=== PATIENT | female | born 1945 | race Caucasian/White ===

== ENCOUNTER 2017-02-09 13:25 | Day surgery (SDC) | payer MEDICARE, BC ==
[~2017-02-09] VITALS: Ht 165.1 cm; Wt 65.5 kg
[~2017-02-09 13:25] MED LIST: ASPI81TA11 PO; BIOT10TA PO; BUTA1CAP PO; CALC1TAB34 PO; CELE200C PO; CHLO25TA2 PO; DEXI60CA2 PO; DEXT1TAB18 PO; ESTR0.752 PO; FOLI1TAB6 PO; IMUR50TA PO; LEVO.05 PO; LEVO1TAB50 PO; LIPI10TA PO; MOME17I EACH NARE; MONT10TA2 PO; MULTTAB67 PO; NIFE30TA61 PO; PLAQ200T PO; RAMI5CAP PO; RIZA10TA2 PO; VALT1TAB PO; VENTAER INH; VITA2000 PO
[2017-02-09] MEDS ORDERED: IOHEXOL 350 MG/ML 50 ML BTL (for Cath Lab) OTHER ONE (13:26)
[2017-02-09] MEDS ORDERED: IOHEXOL 350 MG/ML 100 ML BTL (for Cath Lab) OTHER ONE (13:26)
[2017-02-09 14:25] LABS: AUTOMATED NEUTROPHIL # 3.9 TH/MM3 (1.8-7.7); BASOPHIL % 0.8 % (0.0-2.0); EOSINOPHIL % 0.8 % (0.0-4.0); HEMATOCRIT 43.5 % (35.0-46.0); HEMO FLAGS DIFF FINAL; LYMPH % 25.2 % (9.0-44.0); LYMPHOCYTE # 1.5 TH/MM3 (1.0-4.8); MEAN CELL VOLUME 92.5 FL (80.0-100.0); MEAN CORPUSCULAR HEMOGLOBIN 32.2 PG (27.0-34.0); MEAN CORPUSCULAR HGB CONC 34.8 % (32.0-36.0); MONO % 7.7 % (0.0-8.0); NEUT % 65.5 % (16.0-70.0); PLATELET COUNT 240 TH/MM3 (150-450)
[2017-02-09 14:30] LABS: APTT (PATIENT) 26.2 SEC (24.3-30.1)
[2017-02-09] MEDS ORDERED: ASPIRIN 81 MG CHEW TAB PO SCH (14:30)
[2017-02-09 14:35] LABS: POTASSIUM 3.9 MEQ/L (3.5-5.1)
[2017-02-09 14:45] VITALS: BP 140/75; PULSE 81; RESP 16; TEMP 97.9; O2SAT 97
[2017-02-09] MEDS ORDERED: BACL10TA PO (14:45)
[2017-02-09] MEDS ORDERED: CARA1SUS3 PO (14:45)
[2017-02-09] MEDS ORDERED: SODIUM CHLORID 0.9% 500 ML INJ 500 ML ONE (15:27)
[2017-02-09] MEDS ORDERED: HEPARIN-NS/PF INJ 1,000 ML ONE (15:27)
[2017-02-09] MEDS ORDERED: MIDAZOLAM HCL 2 MG/2 ML VIAL ONE (15:39)
[2017-02-09] MEDS ORDERED: HEPARIN SODIUM - IV 10,000 UNITS/10 ML VIAL ONE (16:29)
[2017-02-09] MEDS ORDERED: ADENOSINE STRESS TEST INJ 90 MG/30 ML VIAL ONE (16:31)
[2017-02-09] MEDS ORDERED: ASPIRIN 81 MG CHEW TAB ONE (17:06)
[2017-02-09] MEDS ORDERED: CLOPIDOGREL 300 MG TAB ONE (17:06)
[2017-02-09] MEDS ORDERED: TIROFIBAN INFUSION INJ 250 ML IV ONE (17:16)
[2017-02-09] MEDS ORDERED: TIROFIBAN INFUSION INJ 250 ML IV SCH (17:27)
[2017-02-09] MEDS ORDERED: BACITRACIN OINT 0.9 GM PKT TOP ONE (17:30)
[2017-02-09] MEDS ORDERED: CLOPIDOGREL 300 MG TAB PO ONE (17:30)
[2017-02-09] MEDS ORDERED: MISC INFORMATION XX ONE (17:30)
[2017-02-09] MEDS ORDERED: SODIUM CHLORIDE 0.9% FLUSH 10 ML FLUSH PRN (17:30)
--- NOTE | 2017-02-09 17:40 | CATHPROC ---
IPWireless HIS Report Study Information Study Number Admission Scheduled Start Study Start [id number] Feb 09 2017 1:25PM 02/09/2017 Feb 09 2017 3:06PM [place] [facility] Cardiac Catheterization Admit Source Facility Department Other [facility] - City Surveyor Physician and Clinical Staff Initial Cain Kaye Deputy Sheriff Chief Brandy Meyer,RN Recorder Mary Arango,BUCKLE SORTER TECH2 Scrub Brandy Vigil,RT(R) Procedures Performed Procedure Location (Site) Vessel Name Coronary Angiograms LCA Left Coronary Coronary Angiograms RCA Right Coronary PTCA CIRC Dist CIRC Wire insertion Fem Art (right) Femoral Art Equipment Time Dining Room Attendant Description Size Mfg Part Number Used/Scraped [id number] 17:00 [employer]LL [employer] WIRE, ASAIndiegogo PROWATER 180CM 180CM Used *[id number] CATHETER, FR5 SWAN ADDISON 15:08 KeepFu FISHER FR 5 [id number] *[id number] Used MONITOR TRANSDUCER, TRUWAVE [id number] 15:08 WILDE FISHER * Used W/STOCKCOCK *[id number] 17:01 ServiceMesh WIRE, CHOICE PT 182CM 182CM Used *[id number] 538-420 *[id number] 538-421 *[id number] *[id number] *[id number] 15:08 [employer] INDUSTRIES PACK, CCL CUSTOM * Used *[id number] 15:08 [employer]Hub PACER PEN, SKIN DUAL W/ RULER * Used *[id number] 17:07 MEDTRONIC BALLOON, 2.0 X 12MM EUPHORA 12MM Used *[id number] 17:08 [employer]ocus[employer] MEDICAL 30 SKY INDEFLATOR Used *[id number] 15:08 [employer] MEDICAL SHEATH, FR5.5 PRELUDE 11CM FR 5.5 Used [id number] 16:31 [employer] MEDICAL SHEATH, FR6.5 PRELUDE 11CM FR 6.5 038ACT Used *[id number] 15:08 [employer] MEDICAL WIRE, 3MMJ .035 180CM 180CM Used *[id number] 15:08 NAMIC MANIFOLD, 4 PORT * Used *[id number] 15:08 NYCOMED OMNIPAQUE, 350 MG, 150ML 150ML [id number] Used [id number] 15:08 PERRIN MEDICAL BLANKET,WARM AIR CCL * Used *[id number] 15:08 TERUMO MEDICAL SHEATH, FR4 TERUMO (10CM) FR 4 Used *[id number] 16:33 [place]OL[place]O PRIME WIRE, VERRATA 185CM 185CM [id number] *[id number] Used Equipment Model, Serial, Lot Number and Expiration Data Description Model Number Serial Number Lot Number Expiration Date PRIME WIRE, VERRATA 185CM [id number] 12-14-2019 WIRE, CHOICE PT 182CM [id number] 11-26-2018 History: Current Medications Medication Dosage/Unit Route Frequency Last Date/Time Taken ASA Celebrex Synthroid LIPITOR History: Allergies Allergy Reaction Demerol Nausea/Vomiting Quinolones TENDON RUPTURE Tetracycline Rash Bactrim Rash CIALIS MIOCARDIAL INFARCTION doxycycline Rash sulfamethoxazole Rash trimethoprim Rash ciprofloxacin TENDON RUPTURE meperidine Nausea/Vomiting minocycline Rash tigecycline Rash Tetracyclines History: Risk Factors Family History of Hypertension Dyslipidemia Previous PR Previous Heart Failure Premature CAD Yes Yes Yes Yes No Prior Valve Prior PCI Prior CABG Surgery No No No Cerebrovascular Peripheral Artery On Dialysis Diabetes Disease Disease No No No No History: Symptoms/Diagnosis Selection Items Angina-unstable SOB History: Stress Tests Stress or Imaging Studies Performed Yes Standard Exercise Stress Test No Stress Echo No Stress Test SPECT Stress Test SPECT Result Stress Test SPECT Ischemia Risk/Extent Yes Positive Intermediate Stress Test CMR No Cardiac CTA Coronary Calcium Score No No History: Other Current Smoker No Labs Hgb (g/dl) Hct (%) RBC (MIL/MM3) WBC (l/cumm) Platelets (thousands) 11.60-17.00 35.00-51.00 4.00-5.90 4.00-11.00 150.00-450.00 15.1 43.5 4.7 6 240 Glucose (mg/dl) BUN (mg/dl) Creatinine (mg/dl) BUN:Creatinine (1:x) 74.00-106.00 7.00-18.00 0.50-1.30 10.00-20.00 83 25 1.1 22.7 Na (meq/l) K (meq/l) CO2 (mmol/L) Ca (mg/dl) 136.00-145.00 3.50-5.10 21.00-32.00 8.50-10.10 139 3.9 29 9.9 PT (sec) PTT (sec) INR (PTT:PT) 9.80-11.60 24.30-30.10 0.90-1.10 11 26.2 1 CPK-MB (ng/ML) 0.50-3.60 Not Drawn Medication Medication Total Dose (Bolus/Oral) Medication Total Dosage/Unit 1% XYLOCAINE 20 mL AGGRASTAT BOLUS 34.6 mL ASPIRIN 162 mg HEPARIN 4800 units PLAVIX 600 mg Medications (Bolus/Oral) Medication Time Given Dosage/Unit Administered By Reason 1% XYLOCAINE 02/09/2017 4:09:47 PM 20 mL Cain Obrien 20 mL 1% XYLOCAINE given in lab by Cain Obrien in Right Groin via Subcutaneous. Ordered by Cain Avendano. HEPARIN 02/09/2017 4:31:01 PM 4800 units Brandy Meyer 4800 units HEPARIN given in lab by Brandy Meyer RN in Left Antecubital via Peripheral IV. Ordered by Cain Obrien. PLAVIX 02/09/2017 5:16:49 PM 600 mg Brandy Meyer 600 mg PLAVIX given in lab by Brandy Meyer RN via Oral. Ordered by Cain Obrien. ASPIRIN 02/09/2017 5:17:26 PM 162 mg Brandy Meyer 162 mg ASPIRIN given in lab by Brandy Meyer RN via Subcutaneous. Ordered by Cain Obrien. AGGRASTAT BOLUS 02/09/2017 5:23:29 PM 34.6 mL Brandy Meyer 34.6 mL AGGRASTAT BOLUS given in lab by Brandy Meyer RN in Left Antecubital via Peripheral IV. Ord ered by Cain Obrien. Medication (Drip) Medication Time Given Dosage/Unit Concentration/Unit Diluent (ml) Solution ADENOSINE DRIP 02/09/2017 4:50:35 PM 146.843 mcg/kg/min 90 mg 90 NaCl .9 146.843 mcg/kg/min ADENOSINE DRIP given in lab by Brandy Meyer RN in Left Antecubital via Peripher al IV. Pump/Drip Flow = 600 ml/hr using NaCl .9 with a concentration of 90 mg in 90 ml. Ordered by Cain Obrien. ADENOSINE DRIP 02/09/2017 4:53:58 PM 146.843 mcg/kg/min 90 mg 90 NaCl .9 146.843 mcg/kg/min ADENOSINE DRIP discontinued in lab by Brandy Meyer RN in Left Antecubital via P eripheral IV. Pump/Drip Flow = 600 ml/hr using NaCl .9 with a concentration of 90 mg in 90 ml. Ordered by Cain Obrien. Reason: As per frandy elise verbal order. Discontinued at 02/09/2017 16:53. AGGRASTAT DRIP 02/09/2017 5:26:58 PM 0.076 mcg/kg/min 12.5 mg 250 NaCl .9 0.076 mcg/kg/min AGGRASTAT DRIP given in lab by Brandy Meyer RN in Left Antecubital via Peripheral IV. Pump/Drip Flow = 6.2 ml/hr using NaCl .9 with a concentration of 12.5 mg in 250 ml. Ordered by Cain Obrien. IV Solutions 02/09/2017 3:21:19 PM 0 mL (IV) 500 NaCl .9 Patient arrived on IV Solutions in Left Antecubital via Peripheral IV. Pump/Drip Flow = 20 ml/hr usin g NaCl .9. Initial Case Assessment Cardiovascular HR Rhythm NIBP Chest Pain 77 SR 126/57 0 Circulatory - Right Pulses Dorsalis Pedis Femoral 2 2 Scale (0,1,2,3,4,d) Circulatory - Left Pulses Dorsalis Pedis Femoral 1 2 Scale (0,1,2,3,4,d) Neurological State Oriented to time-place- Alert Moves all extremities person Respiration - General Respiration Rate SpO2 (%) (B/min) 13 99 Chronological Log Time Study Chronological Log 15:19:10 Patient arrived via Bed. 15:19:17 Patient Name, D.O.B, / Armband Verified By R.N. 15:20:24 Consent signed by the physician and the patient and verified by the City Surveyor staff. 15:20:25 Pre-op and post- op instructions given; patient acknowledges understanding of instructions. 15:20:26 Verbal Stimulation=2 Physical Stimulation=2 Airway=2 Respiration=2 TOTAL=8. (0=absent, 1=li mited, 2=present) 15:20:27 Presedation assessment performed by City Surveyor RN. 15:20:30 Patient has been NPO for More than 6Hrs. 15:20:32 Skin Breakdown-NONE 15:21:12 A # 20 IV was noted in the Antecubital (left). Grade = 0 15:21:19 Patient arrived on IV Solutions in Left Antecubital via Peripheral IV. Pump/Drip Flow = 20 ml/hr using NaCl .9. 15:21:20 History and physical on the chart or being dictated. Vitals capture started with the following parameters, Patient=Adult, Interval=5 min, Initial Pr vigdnz=939 mmHg, 15:23:14 Deflation Rate=5 mmHg, Cuff placed on Left Ankle 15:24:32 HR=77 bpm, WMPY=362/57 mmhg, SpO2=96.0 %, Resp=11 B/min, Pain=0, Antolin=10, Leal=2 15:25:56 Reference ECG taken Assessment: Initial Case, HR=77 BPM, Rhythm=SR, GXTU=167/57 mmhg, Chest Pain=0 Right Pulses: Jaun Ped=2, Femoral=2 15:28:43 Left Pulses: Juan Ped=1, Femoral=2 Neurological: State=Alert, Ox3, PERALES Respiration: Resp=13 B/min, SpO2=99 % 15:28:50 HR=76 bpm, SFMW=907/56 mmhg, SpO2=98.0 %, Resp=9 B/min 15:33:47 HR=76 bpm, EGCZ=113/64 mmhg, SpO2=96.0 %, Resp=12 B/min 15:38:50 HR=84 bpm, XMAZ=344/66 mmhg, SpO2=97.0 %, Resp=11 B/min, Antolin=10 15:40:44 Bilateral groins prepped with 2% chlorhexidine, and with a 3 min. waiting time. 15:43:31 History and physical on the chart or being dictated. 15:43:37 Pressure channel 1 zeroed. 15:43:53 HR=78 bpm, FIRU=480/54 mmhg, SpO2=96.0 %, Resp=11 B/min, Pain=0, Antolin=10, Leal=2 15:44:23 MD paged 15:48:50 HR=79 bpm, NOIR=515/58 mmhg, SpO2=99.0 %, Resp=8 B/min 15:53:51 HR=83 bpm, YHOZ=707/63 mmhg, SpO2=99.0 %, Resp=14 B/min 15:58:53 HR=80 bpm, HFSL=704/57 mmhg, SpO2=97 %, Resp=12 B/min 16:03:24 MD arrived. 16:03:52 HR=82 bpm, ABNM=276/58 mmhg, SpO2=96.0 %, Resp=16 B/min Time Out. Correct patient, correct procedure,correct physician, power injector not used, with s urgical team present. 16:08:44 Time Out Concurred by MD and individual staff in procedure 16:08:55 HR=87 bpm, UCHF=293/66 mmhg, SpO2=97.0 %, Resp=10 B/min 16:09:46 Case Start 20 mL 1% XYLOCAINE given in lab by Cain Obrien in Right Groin via Subcutaneous. Ordered by Micah, 16:09:47 Cain. 16:12:27 Access site was Right Femoral Artery. 16:12:43 A SHEATH, FR4 TERUMO (10CM) FR 4 was advanced into the Fem Art (right) using the Percutaneo us technique. 16:13:09 Saturation: Site=Ao (Aorta) , O2=97.8 %, Hgb=15.1 gm/dl, Condition=Condition 1. Used in joana culation. 16:13:56 HR=83 bpm, AXQW=359/60 mmhg, SpO2=95.0 %, Resp=12 B/min 16:14:22 Access site was Right Femoral Vein. 16:14:32 A SHEATH, FR5.5 PRELUDE 11CM FR 5.5 was advanced into the Fem Vein (right) using the Percut aneous technique. 16:15:09 A CATHETER, FR5 SWAN ADDISON MONITOR FR 5 was inserted via Fem Vein (right) Recorded Pressure: PCW, HR=94, Condition=Condition 1 16:17:19 (Pulmonary Capillary Wedge) PCW 8 Recorded Pressure: MPA, HR=88, Condition=Condition 1 16:17:43 (Main Pulmonary Artery) MPA 16:18:11 Saturation: Site=PA (Pulmonary Artery) , O2=85.4 %, Hgb=15.1 gm/dl, Condition=Condition 1. Used in calculation. Recorded Pressure: RV, HR=88, Condition=Condition 1 16:18:53 (Right Ventricle) RV 36/4/10 16:18:55 HR=87 bpm, UBMK=892/64 mmhg, SpO2=96.0 %, Resp=15 B/min Recorded Pressure: RA, HR=90, Condition=Condition 1 16:19:08 (Right Atrium) RA 7/8/6 16:19:39 Saturation: Site=RA (Right Atrium) , O2=87.8 %, Hgb=15.1 gm/dl, Condition=Condition 1. Used in calculation. 16:20:06 [place] Catheter Removed A JR 4.0 INFINITI CATHETER FR 4 was advanced over a wire. OMNIPAQUE, 350 MG, 150ML 150ML was us ed for 16:20:44 injections. Recorded Pressure: LV, HR=86, Condition=Condition 1 16:21:27 (Left Ventricle) LV 132/4/19 Recorded Pressure: LV, Ao, HR=87, Condition=Condition 1 16:21:50 (Left Ventricle) LV 136/6/19, (Aorta) Ao 133/63/94 16:22:26 The RCA was injected and visualized at various angles. OMNIPAQUE, 350 MG, 150ML 150ML used . 16:22:48 Catheter was removed A JL 4.0 INFINITI CATHETER FR 4 was advanced over a wire. OMNIPAQUE, 350 MG, 150ML 150ML was us ed for 16:22:49 injections. 16:23:50 The LCA was injected and visualized at various angles. OMNIPAQUE, 350 MG, 150ML 150ML used . 16:23:56 HR=90 bpm, WUSA=077/60 mmhg, SpO2=96.0 %, Resp=12 B/min, Antolin=10 16:28:21 Catheter was removed 16:28:55 HR=93 bpm, OMNB=358/65 mmhg, SpO2=96.0 %, Resp=13 B/min, Antolin=10 A SHEATH, FR6.5 PRELUDE 11CM FR 6.5 was exchanged in the Fem Art (right). This was necessary in order to 16:30:25 accomodate a larger catheter. 4800 units HEPARIN given in lab by Brandy Meyer RN in Left Antecubital via Peripheral IV. Or dered by Micah, 16:31:01 Cain. 16:33:56 HR=93 bpm, ZZOC=552/61 mmhg, SpO2=95.0 %, Resp=13 B/min 16:35:41 Activated Clotting Time Drawn 16:38:53 HR=96 bpm, XBKL=735/69 mmhg, SpO2=97.0 %, Resp=15 B/min 16:40:08 Pressure channel 1 zeroed. A XB 3.5 GUIDE CATHETER FR 6 was advanced over a wire. OMNIPAQUE, 350 MG, 150ML 150ML was used for 16:42:23 injections. 16:42:26 ACT (Normal Range 90-180) = 323 Recorded Pressure: Ao, HR=91, Condition=Condition 1 16:43:35 (Aorta) Ao 132/60/90 16:43:58 HR=87 bpm, JUYT=125/61 mmhg, SpO2=97.0 %, Resp=11 B/min 16:45:08 Unable to cannulate, Catheter was removed A XB 3.0 GUIDE CATHETER FR 6 was advanced over a wire. OMNIPAQUE, 350 MG, 150ML 150ML was used for 16:45:22 injections. 16:48:57 HR=89 bpm, FZQG=012/59 mmhg, SpO2=95.0 %, Resp=13 B/min 146.843 mcg/kg/min ADENOSINE DRIP given in lab by Brandy Meyer RN in Left Antecubital via Pe ripheral IV. 16:50:35 Pump/Drip Flow = 600 ml/hr using NaCl .9 with a concentration of 90 mg in 90 ml. Ordered by Cain Calderon. 16:50:38 Flow Wire was was placed in the RAMUS. The FFR measures 97 percent. 16:53:56 GR=490 bpm, WUFL=351/58 mmhg, SpO2=98.0 %, Resp=11 B/min 146.843 mcg/kg/min ADENOSINE DRIP discontinued in lab by Brandy Meyer RN in Left Antecubital via Peripheral IV. 16:53:58 Pump/Drip Flow = 600 ml/hr using NaCl .9 with a concentration of 90 mg in 90 ml. Ordered by Cain Obrien. Reason: As per physicians verbal order. Discontinued at 02/09/2017 16:53. 16:54:58 The PRIME WIRE, VERRATA 185CM 185CM was removed 16:59:01 HR=89 bpm, FICU=534/55 mmhg, SpO2=95.0 %, Resp=14 B/min 17:01:47 A WIRE, ASAHI PROWATER 180CM 180CM was inserted via Fem Art (right). 17:02:47 Unable to advance prowater wire down Circ, wire removed 17:03:56 HR=87 bpm, ALEB=431/63 mmhg, SpO2=95.0 %, Resp=11 B/min 17:05:18 A WIRE, CHOICE PT 182CM 182CM was inserted via Fem Art (right). 17:06:32 A BALLOON, 2.0 X 12MM EUPHORA 12MM was inserted over WIRE, CHOICE PT 182CM 182CM via the CI RC Dist. A BALLOON, 2.0 X 12MM EUPHORA 12MM over a WIRE, CHOICE PT 182CM 182CM in the CIRC Dist was infl ated using 17:07:45 a 30 SKY INDEFLATOR at 9 sky for 25 sec. 17:08:59 HR=91 bpm, IWTM=711/63 mmhg, SpO2=96.0 %, Resp=17 B/min, Antolin=10 17:09:16 Balloon Removed. 17:09:21 Wire removed 17:09:27 Catheter was removed 17:12:08 Case End 17:13:22 In the Fem Art (right) the SHEATH, FR6.5 PRELUDE 11CM FR 6.[address] by Cain Whitley. 17:13:47 Sterile dressing applied to site 17:13:48 No case complications noted. 17:13:49 Cine recording checked. 17:14:03 HR=85 bpm, CWNQ=526/59 mmhg, SpO2=96.0 %, Resp=9 B/min 17:16:49 600 mg PLAVIX given in lab by Brandy Meyer, ECTOR via Oral. Ordered by Cain Obrien. 17:17:26 162 mg ASPIRIN given in lab by Brandy Meyer, ECTOR via Subcutaneous. Ordered by Yasmeen Obrien rthur. 17:19:02 HR=84 bpm, SJEH=713/66 mmhg, SpO2=98.0 %, Resp=13 B/min 34.6 mL AGGRASTAT BOLUS given in lab by Hesher, Brandy, RN in Left Antecubital via Peripheral IV. Ordered by 17:23:29 Cain Obrien. 17:23:46 Vitals capture stopped. 17:23:55 Patient moved to bed 0.076 mcg/kg/min AGGRASTAT DRIP given in lab by Brandy Meyer, RN in Left Antecubital via Per ipheral IV. 17:26:58 Pump/Drip Flow = 6.2 ml/hr using NaCl .9 with a concentration of 12.5 mg in 250 ml. Ordered by Cain Obrien. 17:32:22 Patient transported to DOCU End Study - Contrast Media Used In Study Contrast Total Opened (mL) Total Used (mL) Total Wasted (mL) Omnipaque 140 140 0 End Study - Maximum Contrast Load Max Contrast Load (mL) 309.5 End Study - Radiation Exposure Fluoro Time (minutes) 10.8 End Study - Patient Disposition Complications Transferred To Interventional Outcome No Telemetry Bed successful
[2017-02-09 20:30] VITALS: BP 128/64; PULSE 72; PULSE 75; RESP 18; TEMP 97.7; O2SAT 96
[2017-02-09 21:00] VITALS: PULSE 76
[2017-02-09] MEDS ORDERED: BACLOFEN 10 MG TAB PO PRN (21:00)
[2017-02-09] MEDS: SODIUM CHLORIDE 0.9% FLUSH 10 ML FLUSH SCH (21:00)
[2017-02-09] MEDS ORDERED: ATORVASTATIN 10 MG TAB PO SCH (21:00)
[2017-02-09] MEDS ORDERED: ACETAMINOPHEN 500 MG CPLT PO PRN (21:30)
[2017-02-09 22:00] VITALS: PULSE 76
[2017-02-09 23:00] VITALS: BP 131/63; PULSE 79; PULSE 82; RESP 18; TEMP 98; O2SAT 96
[2017-02-10] VITALS (14 sets, daily range): BP systolic 122–139; BP diastolic 59–67; PULSE 60–108; RESP 16–18; TEMP 97.6–97.7; O2SAT 95–98
[2017-02-10 04:02] LABS: AUTOMATED NEUTROPHIL # 3.4 TH/MM3 (1.8-7.7); BASOPHIL % 0.8 % (0.0-2.0); EOSINOPHIL % 0.6 % (0.0-4.0); HEMATOCRIT 41.8 % (35.0-46.0); HEMO FLAGS DIFF FINAL; LYMPH % 30.9 % (9.0-44.0); LYMPHOCYTE # 1.8 TH/MM3 (1.0-4.8); MEAN CORPUSCULAR HEMOGLOBIN 32.2 PG (27.0-34.0); MEAN CORPUSCULAR HGB CONC 34.7 % (32.0-36.0); MONO % 9.5 % (0.0-8.0); NEUT % 58.2 % (16.0-70.0); PLATELET COUNT 238 TH/MM3 (150-450); RED CELL DISTRIBUTION WIDTH 13.9 % (11.6-17.2); WHITE BLOOD COUNT 5.8 TH/MM3 (4.0-11.0)
[2017-02-10 04:19] LABS: BICARBONATE 29.6 MEQ/L (21.0-32.0); POTASSIUM 3.3 MEQ/L (3.5-5.1)
--- NOTE | 2017-02-10 07:38 | MA ---
cc: NARGIS HALLMAN M.D. DATE 02/09/2017 PROCEDURE PERFORMED Right heart catheterization, left heart catheterization, left ventriculography, coronary artery, FFR of the ramus intermedius vessel and PTCA of the distal left circumflex vessel. INDICATION Unstable angina, [place] Cardiovascular Society class IV angina, coronary artery disease, congestive heart failure, dyspnea, [place] Heart Association class III, moderate sized reversible defect/fixed defect in the lateral wall, EF 64%. PROCEDURAL STATEMENT The patient was brought to the cardiac catheterization laboratory, prepped and draped in the usual sterile fashion. 10 cc's of 1% lidocaine was used to locally anesthetize the right common femoral artery. A 4-Montenegrin sheath was successfully placed in the right common femoral artery. A 5-Montenegrin sheath placed in the right common femoral vein. Right heart catheterization was performed first with the following findings. The pulmonary capillary wedge pressure 12/8-8. PA pressure 30/14-21. RV pressure 36/4-10. RA pressure 7/8-6. The sats were done on room air with an: FA sat of 97.8%. PA sat 85.4%. RA sat of 87.8%. Cardiac output by Oleg is 8.6 liters/minute. Cardiac index by Oleg is 4.9 liters/meter squared per minute. SVR is 819.5 dynes. Left heart catheterization was then performed with a 4-Montenegrin JR-4, JL-4 catheter with the following findings: LV pressure 135/5-8. EF 65% The right coronary artery is dominant. There is mild diffuse disease throughout the entire RCA up to 10-20% angiographically. The right PDA has a proximal focal 20-30% stenosis. The left main coronary artery has no significant disease angiographically. The left circumflex vessel has a distal 95% stenosis supplying two small posterolateral artery beyond the stenosis. Estimated left vessel diameter is probably 2 mm in diameter. The ramus intermedius vessel is a large vessel approaching the apex with a proximal mid 50% stenosis. The LAD is transapical with mild to moderate diffuse disease in the proximal mid segment up to 30-40% angiographically. The first and second diagonal arteries are very small vessels 0.5-1 mm in diameter with no significant obstructive disease. The third diagonal artery is a small to medium size vessel reference vessel diameter in the proximal segment probably 225-25 mm in diameter has a proximal bifurcation. In the ostial segments of both of the bifurcation branches, there is mild diffuse disease up to 30% angiographically. DISCUSSION The patient has a moderate size partially fixed defect and reversible defect in the lateral wall. It is indeterminate whether her culprit lesion is the ramus intermedius vessel or the distal left circumflex vessel stenosis. Therefore I do think the FFR of the ramus intermedius vessel was medically necessary particularly since this is a large vessel. Therefore, a 6-Montenegrin sheath was exchanged for a 4-Montenegrin sheath. 70 units/kilo of heparin was given, ACT 323. A 0.014 [place] pressure wire was placed into the proximal right ramus intermedius vessel. Introducers were removed. The guide catheter was thoroughly flushed with 20 cc of normal saline. Normalization of pressure waveforms was then performed. I then placed the [place] pressure wire into the distal ramus intermedius vessel. The patient was infused with 140 prasad/kilogram per minute of adenosine for 2 minutes and 30 seconds. Maximum FFR was 0.97. This did not reproduced the patient's chest pain. My intent was to actually placed the volcano pressure wire into the distal left circ just to document a significant physiologic gradient, however, due to vessel tortuosity, I was not able to do this. I used a 6-Montenegrin XB 3.0 guide and this had a more anterior alignment in the left main. I tried a 3.5 guide, however the tip was to long to actually engage the left main. Therefore, I decided to proceed to intervention of the left circ as this is her culprit lesion in the past. The patient's symptoms were suggestive of angina and she did have a moderate sized reversible defect in the lateral wall. I did think it was reasonable to perform angioplasty in this vessel to relieve the patient's [place] Cardiovascular Society Class IV angina. I was not able to place a 0.014 [place] guidewire into the left circ again due to vessel tortuosity. I was able to successfully deliver a 0.014 Choice PT guidewire into the distal left circ and into the distal posterolateral artery. I then proceeded to balloon angioplasty the lesion with a 2.0 x 12 compliant Euphora balloon. Note with the balloon not inflated, there was occlusion of contrast around the lesion. The patient began to develop her chest pain that she had at home suggesting this was the culprit lesion. The balloon was inflated to 9 atmospheres of pressure and it did require 9 atmospheres of pressure to fully inflate the balloon. The patient's chest pain did intensify during balloon inflation. Chest pain was completely relieved after balloon deflation. The stenosis went from 95% to 0% with KENNETH-III flow. Final ACT was 323 prior to intervention. CONCLUSION 1. Unstable angina, [place] Cardiovascular Society class IV angina. 2. Coronary artery disease, moderate size reversible defect in the lateral wall with culprit 95% distal left circumflex vessel stenosis as detailed above. 3. A 50% stenosis in the proximal ramus intermedius vessel with an FFR of 0.97. 4. Normal right heart catheterization pressures as detailed above. 5. Normal LV systolic function ejection fraction 65%. 6. Otherwise mild to moderate three-vessel coronary artery disease in a right dominant system. 7. Successful PTCA of the distal left circumflex vessel from 95% to 0% with KENNETH-III flow. 8. Recommend Plavix 600 mg p.o. load then 75 mg a day for 12-15 months, Aspirin 162 mg daily, Aggrastat drip per protocol. 9. We will continue medical management of coronary artery disease with Lipitor 10 mg at bedtime, Altace 5 mg daily. MD NELSON Gonzales/CIARA /5:16 PM /7:07 AM
--- NOTE | 2017-02-10 07:58 | EKG ---
Date Performed: 02/09/2017 Time Performed: 14:36:56 PTAGE: 71 years EKG: Sinus rhythm Left axis deviation RBBB with left anterior fascicular block Inferior infarct - age undetermined Low QRS voltages in precordial leads Abnormal ECG Since PREVIOUS TRACING , no significant change noted PREVIOUS TRACIN10/02/2013 09.20 DOCTOR: Joanne Suazo Interpretating Date/Time 02/10/2017 07:56:54
--- NOTE | 2017-02-10 08:09 | EKG ---
Date Performed: 02/10/2017 Time Performed: 05:51:32 PTAGE: 71 years EKG: Sinus rhythm Left axis deviation RBBB with left anterior fascicular block Low QRS voltages in precordial leads Si nce previous tracing, no significant change noted Abnormal ECG NO PREVIOUS TRACING DOCTOR: Joanne Suazo Interpretating Date/Time 02/10/2017 08:08:47
[2017-02-10] MEDS ORDERED: LISINOPRIL 5 MG TAB PO SCH (09:00)
[2017-02-10] MEDS ORDERED: CLOPIDOGREL 75 MG TAB PO SCH (09:00)
[2017-02-10] MEDS ORDERED: ASPIRIN 81 MG CHEW TAB PO SCH (09:00)
[2017-02-10] MEDS: SODIUM CHLORIDE 0.9% FLUSH 10 ML FLUSH SCH (09:56)
[2017-02-10] MEDS ORDERED: PLAV75TA29 PO (12:03)
== END 2017-02-10 14:30 | disposition home or self-care (01) ==
LOC: HDOC 13:25 → HDIC 13:26 → HCPC 20:15 → HDOC 02-10 14:30
PROVIDERS: ATTEND Internal Medicine Interventional Cardiology
DX: I25.110 Atherosclerotic heart disease of native coronary artery with unstable angina pectoris (principal); I11.0 Hypertensive heart disease with heart failure; I50.9 Heart failure, unspecified; I25.2 Old myocardial infarction; E78.2 Mixed hyperlipidemia; M34.1 CR(E)ST syndrome; E07.9 Disorder of thyroid, unspecified; Z79.82 Long term (current) use of aspirin; Z79.899 Other long term (current) drug therapy
CPT/HCPCS: 80048; 82550; 82810; 85002; 85025; 85347; 85610; 85730; 92920; 93005; 93460; 93571; C1725; C1769; C1887; C1893; J0153; J1644; J2250; J3010; J3246; J7040; Q9967